=== PATIENT | male | born 1960 | race Caucasian/White ===

== ENCOUNTER 2019-04-03 20:31 | Emergency (ER) | payer MEDICARE ==
[~2019-04-03] VITALS: Ht 180.3 cm; Wt 100.0 kg
--- NOTE | 2019-04-03 21:06 | NUR ---
REPORT GIVEN TO MD SHAIKH ON PT'S ARRIVAL FROM EMS, LOSS OF CONSCIOUSNESS AND FALL, AND UNEVEN PUPILS.
[2019-04-03] MEDS ORDERED: ringers solution, lactated 1000ml IV soln IV ONE (21:15)
[2019-04-03 21:51] LABS: PARTIAL THROMBOPLASTIN TIME 28 SECONDS (22-32)
[2019-04-03 21:53] LABS: ALANINE AMINOTRANSFERASE 53 U/L (12-78); ALBUMIN 3.9 G/DL (3.4-5.0); ALKALINE PHOSPHATASE 79 IU/L (46-116); ANION GAP 13 (8-16); ASPARTATE AMINO TRANSFERASE 44 U/L (10-37); BILIRUBIN,TOTAL 0.4 MG/DL (0.1-1.0); BLOOD UREA NITROGEN 5 MG/DL (7-18); BUN/CREATININE RATIO 6.4 (5.4-32.0); CALCIUM 9.1 MG/DL (8.5-10.1); CHLORIDE 94 MMOL/L (99-107); CREATININE 0.78 MG/DL (0.60-1.10); ETHANOL 0.232 GM/DL (0.0-0.010); GLUCOSE 100 MG/DL (70-104); POTASSIUM 4.4 MMOL/L (3.5-5.1); SODIUM 131 MMOL/L (135-145); TOTAL CARBON DIOXIDE 23.9 MMOL/L (24-32); TOTAL PROTEIN 7.9 G/DL (6.4-8.2); eGFR > 90 ML/MIN
[2019-04-03 21:56] LABS: BASOPHILS # (AUTO) 0.1 X10'3 (0-0.2); EOSINOPHILS # (AUTO) 0.2 X10'3 (0-0.9); LYMPHOCYTES # (AUTO) 1.1 X10'3 (1.1-4.8); LYMPHOCYTES % (AUTO) 21.8 % (21-51); MEAN CORPUSCULAR HGB CONC 34.5 g/dL (33.0-36.5); MEAN CORPUSCULAR VOLUME 102.3 FL (78-98)
[2019-04-03] MEDS ORDERED: LISI10TA4 PO (21:57)
[2019-04-03] MEDS ORDERED: AMLO10TA28 PO (21:57)
[2019-04-03] MEDS ORDERED: GABA-534 PO (21:57)
[2019-04-03 21:58] LABS: BASOPHILS % (AUTO) 1.7 % (0-1); HEMATOCRIT 39.1 % (42.0-52.0); HEMOGLOBIN 13.5 g/dl (14.0-17.9); MEAN CORPUSCULAR HEMOGLOBIN 35.3 PG (27.0-31.0); MEAN PLATELET VOLUME 7.8 FL (7.4-10.4); MONOCYTES # (AUTO) 0.6 X10'3 (0-0.9); MONOCYTES % (AUTO) 12.4 % (2-12); NEUTROPHILS # (AUTO) 3.1 X10'3 (1.8-7.7); NEUTROPHILS % (AUTO) 61.1 % (42-75); PLATELET COUNT 285 X10'3 (140-440); RED BLOOD COUNT 3.82 X10'6 (4.70-6.10); RED CELL DISTRIBUTION WIDTH 15.5 % (11.5-14.5); WHITE BLOOD COUNT 5.2 X10'3 (4.5-11.0)
[2019-04-03 23:51] VITALS: BP 122/83
== END 2019-04-03 23:46 | disposition home or self-care (01) ==
LOC: ER 20:32
DX: S00.03XA Contusion of scalp, initial encounter (principal); M25.511 Pain in right shoulder; M25.512 Pain in left shoulder; F10.929 Alcohol use, unspecified with intoxication, unspecified; I25.10 Atherosclerotic heart disease of native coronary artery without angina pectoris; Z88.0 Allergy status to penicillin; Z88.6 Allergy status to analgesic agent; Z79.899 Other long term (current) drug therapy; W01.0XXA Fall on same level from slipping, tripping and stumbling without subsequent striking against object, initial encounter; Y93.89 Activity, other specified; Y92.89 Other specified places as the place of occurrence of the external cause; Y99.8 Other external cause status; Y90.9 Presence of alcohol in blood, level not specified
CPT/HCPCS: 36415; 70450; 71046; 72125; 73030; 80053; 80320; 85025; 85610; 85730; 93005; 99284; J7120

== ENCOUNTER 2021-06-01 10:03 | Emergency (ER) | payer OTHER, MEDICARE ==
[~2021-06-01] VITALS: Ht 180.3 cm; Wt 100.0 kg
[~2021-06-01 10:03] MED LIST: AMLO5TAB PO; FURO40TA4 PO; GABA300C PO; LISI40TA13 PO
[2021-06-01 10:52] LABS: BASOPHILS # (AUTO) 0.1 X10'3 (0-0.2); BASOPHILS % (AUTO) 0.9 % (0-1); EOSINOPHILS # (AUTO) 0.2 X10'3 (0-0.9); EOSINOPHILS % (AUTO) 2.7 % (0-6); HEMATOCRIT 45.8 % (42.0-52.0); LYMPHOCYTES # (AUTO) 1.5 X10'3 (1.1-4.8); LYMPHOCYTES % (AUTO) 17.3 % (21-51); MEAN CORPUSCULAR HEMOGLOBIN 34.6 PG (27.0-31.0); MEAN CORPUSCULAR HGB CONC 34.9 g/dL (33.0-36.5); MONOCYTES % (AUTO) 11.4 % (2-12); NEUTROPHILS % (AUTO) 67.7 % (42-75); PLATELET COUNT 237 X10'3 (140-440); RED BLOOD COUNT 4.62 X10'6 (4.70-6.10); RED CELL DISTRIBUTION WIDTH 13.8 % (11.5-14.5); WHITE BLOOD COUNT 8.9 X10'3 (4.5-11.0)
[2021-06-01 11:03] LABS: ALANINE AMINOTRANSFERASE 39 U/L (12-78); ALBUMIN 3.7 G/DL (3.4-5.0); ALBUMIN/GLOBULIN RATIO 0.8 (1.1-1.5); ALKALINE PHOSPHATASE 111 IU/L (46-116); ANION GAP 8 (8-16); ASPARTATE AMINO TRANSFERASE 45 U/L (10-37); BILIRUBIN,TOTAL 1.1 MG/DL (0.1-1.0); BLOOD UREA NITROGEN 6 MG/DL (7-18); BUN/CREATININE RATIO 5.1 (5.4-32.0); CALCIUM 9.1 MG/DL (8.5-10.1); CHLORIDE 101 MMOL/L (99-107); CREATININE 1.17 MG/DL (0.60-1.10); GLUCOSE 117 MG/DL (70-104); POTASSIUM 3.7 MMOL/L (3.5-5.1); SODIUM 136 MMOL/L (135-145); TOTAL PROTEIN 8.3 G/DL (6.4-8.2); eGFR 64 ML/MIN
[2021-06-01 11:31] LABS: D-DIMER 0.58 MG/L FEU (0-0.50)
[2021-06-01] MEDS ORDERED: iohexol 350MG/ML 100ml bottle IV ONE (12:25)
[2021-06-01] MEDS ORDERED: ringers solution, lactated 1000ml IV soln IV ONE (15:15)
[2021-06-01 15:53] LABS: URINE AMPHETAMINE SCREEN NEGATIVE (Neg); URINE BARBITUATE SCREEN NEGATIVE (Neg); URINE BENZODIAZEPINES SCREEN NEGATIVE (Neg); URINE CANNABINOID SCREEN NEGATIVE (Neg); URINE COCAINE SCREEN NEGATIVE (Neg); URINE METHADONE SCREEN NEGATIVE (Neg); URINE OPIATE SCREEN NEGATIVE (Neg); URINE PHENCYCLIDINE SCREEN NEGATIVE (Neg)
[2021-06-01] MEDS ORDERED: diltiazem 5mg/ml 5ml inj. IV ONE ×2 (16:10→17:05)
[2021-06-01] MEDS ORDERED: metoprolol succinate 25mg (24-HOUR) SR. Tablet PO SCH ×2 (17:30→17:35)
[2021-06-01] MEDS ORDERED: LOP12.5T PO (17:36)
[2021-06-01 17:47] VITALS: BP 143/85
== END 2021-06-01 18:27 | disposition home or self-care (01) ==
LOC: ER 10:03
DX: R05.9 Cough, unspecified (principal); Z20.822 Contact with and (suspected) exposure to COVID-19; R00.0 Tachycardia, unspecified; R06.02 Shortness of breath; R53.1 Weakness; R60.9 Edema, unspecified; I11.0 Hypertensive heart disease with heart failure; I50.9 Heart failure, unspecified; Z72.89 Other problems related to lifestyle; Z88.6 Allergy status to analgesic agent; Z88.0 Allergy status to penicillin; Z88.1 Allergy status to other antibiotic agents; Z79.899 Other long term (current) drug therapy
CPT/HCPCS: 36415; 71045; 71275; 80053; 80305; 83880; 84145; 84443; 84484; 85025; 85379; 87502; 87503; 87635; 93005; 96374; 96376; 99285; C9803; J3490; J7120; Q9967

== ENCOUNTER 2022-03-03 13:50 | Emergency (ER) | payer OTHER, MEDICARE ==
[~2022-03-03] VITALS: Ht 180.3 cm; Wt 101.0 kg
[~2022-03-03 13:50] MED LIST changes: +LOP12.5T PO
--- NOTE | 2022-03-03 19:48 | NUR ---
received pt in room 12.call light within reach.
[2022-03-03 20:35] LABS: EOSINOPHILS # (AUTO) 0.2 X10'3 (0-0.9); HEMOGLOBIN 16.8 g/dl (14.0-17.9); LYMPHOCYTES % (AUTO) 15.8 % (21-51); MEAN PLATELET VOLUME 10.1 FL (7.4-10.4); MONOCYTES # (AUTO) 1.2 X10'3 (0-0.9); NEUTROPHILS # (AUTO) 9.4 X10'3 (1.8-7.7); PLATELET COUNT 205 X10'3 (140-440); WHITE BLOOD COUNT 12.9 X10'3 (4.5-11.0)
[2022-03-03] MEDS ORDERED: ondansetron/PF 4mg/2ml inj IV ONE (20:35)
[2022-03-03] MEDS ORDERED: morphine 4 MG/ML inj SYRINge IV ONE (20:35)
--- NOTE | 2022-03-03 20:35 | NUR ---
patient has new onset afib hr 145, ekg ordered by Dr. Pineda, no chest discomfort.
[2022-03-03 20:36] LABS: CLARITY,URINE CLEAR (Clear); COLOR,URINE YELLOW (Yellow); GLUCOSE, URINE NEGATIVE (Neg); KETONES,URINE NEGATIVE (Neg); LEUKOCYTE ESTERASE ,URINE NEGATIVE (Neg); NITRITES, URINE NEGATIVE (Neg); OCCULT BLOOD,URINE NEGATIVE (Neg); PROTEIN,URINE NEGATIVE (Neg); UROBILINOGEN,URINE 0.2 E.U/dL (0.2-1.0)
[2022-03-03 20:38] LABS: BASOPHILS # (AUTO) 0.1 X10'3 (0-0.2); BASOPHILS % (AUTO) 0.6 % (0-1); EOSINOPHILS % (AUTO) 1.4 % (0-6); HEMATOCRIT 48.6 % (42.0-52.0); MEAN CORPUSCULAR HEMOGLOBIN 35.8 PG (27.0-31.0); MEAN CORPUSCULAR HGB CONC 34.5 g/dL (33.0-36.5); MEAN CORPUSCULAR VOLUME 103.7 FL (78-98); NEUTROPHILS % (AUTO) 73.2 % (42-75); RED BLOOD COUNT 4.69 X10'6 (4.70-6.10); RED CELL DISTRIBUTION WIDTH 14.7 % (11.5-14.5)
[2022-03-03 20:44] LABS: UA COLLECTION TYPE CLN CATCH MIDSTREAM
[2022-03-03 20:56] LABS: ALANINE AMINOTRANSFERASE 66 U/L (12-78); ALBUMIN 3.6 G/DL (3.4-5.0); ALBUMIN/GLOBULIN RATIO 0.7 (1.1-1.5); ALKALINE PHOSPHATASE 196 IU/L (46-116); ANION GAP 13 (8-16); ASPARTATE AMINO TRANSFERASE 98 U/L (10-37); BILIRUBIN,TOTAL 2.3 MG/DL (0.1-1.0); BLOOD UREA NITROGEN 6 MG/DL (7-18); BUN/CREATININE RATIO 5.9 (5.4-32.0); CALCIUM 9.1 MG/DL (8.5-10.1); CHLORIDE 97 MMOL/L (99-107); CREATININE 1.02 MG/DL (0.60-1.10); GLUCOSE 116 MG/DL (70-104); LIPASE 72 U/L (73-393); SODIUM 138 MMOL/L (135-145); TOTAL CARBON DIOXIDE 27.7 MMOL/L (24-32); TOTAL PROTEIN 8.8 G/DL (6.4-8.2); eGFR 75 ML/MIN
[2022-03-03 21:03] LABS: POTASSIUM 3.4 MMOL/L (3.5-5.1)
[2022-03-03] MEDS ORDERED: levoFLOXACIN-Levaquin 750MG/D5 150 ML IV ONE (22:05)
[2022-03-03] MEDS ORDERED: azithromycin/NS 500mg/250ml 250 ML IV ONE (22:05)
[2022-03-03] MEDS ORDERED: ONDA8TAB13 PO (22:35)
[2022-03-03] MEDS ORDERED: OXYC-658 PO (22:35)
[2022-03-03 23:01] VITALS: BP 137/84
== END 2022-03-03 23:04 | disposition home or self-care (01) ==
LOC: ER 13:50
DX: R10.11 Right upper quadrant pain (principal); R74.8 Abnormal levels of other serum enzymes; I25.10 Atherosclerotic heart disease of native coronary artery without angina pectoris; I10 Essential (primary) hypertension; Z98.890 Other specified postprocedural states; Z72.89 Other problems related to lifestyle; Z88.0 Allergy status to penicillin; Z88.6 Allergy status to analgesic agent; Z88.8 Allergy status to other drugs, medicaments and biological substances; Z88.1 Allergy status to other antibiotic agents; Z79.899 Other long term (current) drug therapy
CPT/HCPCS: 36415; 76700; 80053; 81003; 83690; 84484; 85025; 93005; 96374; 96375; 99285; J2270; J2405